=== PATIENT | female | born 1975 | race Caucasian/White ===

== ENCOUNTER 2023-08-12 21:24 | Emergency (ER) | payer MEDICAID ==
[~2023-08-12] VITALS: Ht 165.1 cm; Wt 67.5 kg
[2023-08-12 21:26] VITALS: BP 136/83; PULSE 94; RESP 16; TEMP 97.8; O2SAT 100
[2023-08-12] MEDS: CefTRIAXone 1000mg IM Kit (w/lidocaine diluent) IM STA (22:49)
[2023-08-12] MEDS: DOXYCYCLINE 100MG CAPSULE PO ONE (22:49)
[2023-08-12 22:50] LABS: BILIRUBIN,URINE NEGATIVE (Neg); CLARITY,URINE CLOUDY (Clear); COLOR,URINE YELLOW (Yellow); GLUCOSE, URINE NEGATIVE (Neg); KETONES,URINE NEGATIVE (Neg); LEUKOCYTE ESTERASE ,URINE MODERATE (Neg); NITRITES, URINE NEGATIVE (Neg); OCCULT BLOOD,URINE SMALL (Neg); PROTEIN,URINE NEGATIVE (Neg)
[2023-08-12 22:51] LABS: URINE HCG NEGATIVE (NEG)
[2023-08-12 22:55] LABS: UA COLLECTION TYPE CLN CATCH MIDSTREAM
[2023-08-12 22:57] LABS: BACTERIA,URINE 2+ /HPF (Neg); RENAL CELLS, URINE FEW /HPF; SQUAMOUS EPITHELIAL CELL,UR FEW /LPF (FEW); TRANSITIONAL EPI CELLS,URINE FEW /HPF; WBC,URINE TNTC /HPF (0-4)
[2023-08-12] MEDS ORDERED: SULF1TAB45 PO (23:03)
[2023-08-15 07:07] LABS: CHLAMYDIA TRACHOMATIS, NAA Negative (Negative)
== END 2023-08-12 23:07 | disposition home or self-care (01) ==
LOC: ER 21:25
DX: N39.0 Urinary tract infection, site not specified (principal); Z79.899 Other long term (current) drug therapy
CPT/HCPCS: 36415; 81001; 81025; 87077; 87088; 87186; 87491; 87591; 96372; 99283; J0696